=== PATIENT | male | born 1970 | race Caucasian/White ===

== ENCOUNTER 2016-12-02 15:17 | Emergency (ER) | payer OTHER ==
[~2016-12-02] VITALS: Ht 172.7 cm; Wt 77.1 kg
[2016-12-02 16:59] VITALS: BP 126/98
== END 2016-12-02 17:23 | disposition home or self-care (01) ==
LOC: ED 15:17
DX: G40.909 Epilepsy, unspecified, not intractable, without status epilepticus (principal)
CPT/HCPCS: J2060

== ENCOUNTER 2016-12-07 23:30 | Emergency (ER) | payer OTHER ==
[2016-12-08 00:18] VITALS: BP 160/98
== END 2016-12-08 00:18 | disposition home or self-care (01) ==
LOC: ED 23:30
DX: R56.9 Unspecified convulsions (principal)

== ENCOUNTER 2016-12-19 17:47 | Emergency (ER) | payer OTHER ==
[2016-12-19 19:51] VITALS: BP 148/88
== END 2016-12-19 19:51 | disposition home or self-care (01) ==
LOC: ED 17:47
DX: G40.109 Localization-related (focal) (partial) symptomatic epilepsy and epileptic syndromes with simple partial seizures, not intractable, without status epilepticus (principal)
CPT/HCPCS: 82962; J2060

== ENCOUNTER 2016-12-25 07:20 | Emergency (ER) | payer OTHER ==
[~2016-12-25] VITALS: Ht 172.7 cm; Wt 88.9 kg
[2016-12-25 07:55] LABS: BASOPHIL % 0.4 % (0-2); PLATELET COUNT 245 x10^3mcL (130-400); RED CELL DISTRIBUTION WIDTH 12.5 % (11.5-14.5)
[2016-12-25 08:11] LABS: CALCIUM 8.5 mg/dL (8.5-10.1); CARBON DIOXIDE 28.1 mmol/L (21-32); CHLORIDE SERUM 105 mmol/L (98-107); GFR1 > 60 mL/min; GLUCOSE SERUM 93 mg/dL (74-106); POTASSIUM SERUM 4.1 mmol/L (3.5-5.1); SODIUM SERUM 141 mmol/L (136-145)
[2016-12-25 08:15] LABS: ALBUMIN 3.6 g/dL (3.4-5.0); ALKALINE PHOSPHATASE 53 U/L (46-116); ALT/SGPT 22 U/L (16-63); AST/SGOT 18 U/L (15-37); BILIRUBIN TOTAL 0.44 mg/dL (0.20-1.00); LIPASE 297 IU/L (73-393); TOTAL PROTEIN, SERUM 7.1 g/dL (6.4-8.2)
[2016-12-25 10:41] VITALS: BP 120/64
== END 2016-12-25 10:41 | disposition home or self-care (01) ==
LOC: ED 07:20
PROVIDERS: Emergency Medicine
DX: R56.9 Unspecified convulsions (principal); K29.70 Gastritis, unspecified, without bleeding
CPT/HCPCS: 83880; J3490; Q0092